=== PATIENT | male | born 1960 | race Caucasian/White ===

== ENCOUNTER 2018-07-13 07:45 | Emergency (ER) | payer SELFPAY ==
[~2018-07-13] VITALS: Ht 177.8 cm; Wt 87.0 kg
[2018-07-13] MEDS ORDERED: IBUPROFEN 800MG TABLET PO ONE (10:30)
[2018-07-13] MEDS ORDERED: HYDROCODONE/ACETAMINOPHEN 5/325MG TABLET PO ONE (10:30)
[2018-07-13 12:05] VITALS: BP 158/71
== END 2018-07-13 12:06 | disposition home or self-care (01) ==
LOC: ER 08:37
DX: S80.812A Abrasion, left lower leg, initial encounter (principal); V03.90XA Pedestrian on foot injured in collision with car, pick-up truck or van, unspecified whether traffic or nontraffic accident, initial encounter; Y93.01 Activity, walking, marching and hiking; Y92.410 Unspecified street and highway as the place of occurrence of the external cause
CPT/HCPCS: 72170; 73552; 73562; 99284; Z7610